=== PATIENT | male | born 1950 | race Caucasian/White ===

== ENCOUNTER 2021-03-24 19:22 | Emergency (ER) | payer MEDICARE ==
[~2021-03-24] VITALS: Ht 170.2 cm; Wt 91.8 kg
--- NOTE | 2021-03-24 19:48 | PHYS DOC ---
General Adult EDM: Chief Complaint: CHEST PAIN HPI: HPI: 62-year-old male presents with chest pain. He has been having intermittent chest pain for the last couple of days. It improves with baby aspirin. The only medication he takes is a baby aspirin daily. He describes the pain as a pressure sensation of moderate intensity. He has not seen a doctor in "25 years". On arrival his blood pressure was 200/110s. He tells me he has never taken blood pressure medicine. He denies diaphoresis. He has not had a stress test or cardiac cath. Denies fever or chills. He was vaccinated for COVID-19. Review of Systems: Review of Systems: Constitutional: Denies fever or chills Eyes: Denies change in visual acuity HENT: Denies nasal congestion or sore throat Respiratory: Denies cough or shortness of breath Cardiovascular: Denies chest pain or edema GI: Denies abdominal pain, nausea, vomiting, bloody stools or diarrhea : Denies dysuria Musculoskeletal: Denies back pain or joint pain Integument: Denies rash Neurologic: Denies headache, focal weakness or sensory changes Endocrine: Denies polyuria or polydipsia Lymphatic: Denies swollen glands Psychiatric: Denies depression or anxiety Physical Exam: PE: Constitutional: Well developed, well nourished, no acute distress, non-toxic appearance. [] HENT: Normocephalic, atraumatic, bilateral external ears normal, oropharynx moist, no oral exudates, nose normal. [] Eyes: PERRLA, EOMI, conjunctiva normal, no discharge. [] Neck: Normal range of motion, no tenderness, supple, no stridor. [] Cardiovascular:Heart rate regular rhythm, no murmur [] Lungs & Thorax: Bilateral breath sounds clear to auscultation [] Abdomen: Bowel sounds normal, soft, no tenderness, no masses, no pulsatile masses. [] Skin: Warm, dry, no erythema, no rash. [] Back: No tenderness, no CVA tenderness. [] Extremities: No tenderness, no cyanosis, no clubbing, ROM intact, no edema. [] Neurologic: Alert and oriented X 3, normal motor function, normal sensory f unction, no focal deficits noted. [] Psychologic: Affect normal, judgement normal, mood normal. [] EKG: EKG: Sinus rhythm, rate 96, normal axis, ST depression V2, lead I. No ST elevation. [] Radiology/Procedures: Radiology/Procedures: [] Impressions: XR CHEST 1V Clinical Indication: Reason: CP Comparison: None. Findings: Atherosclerotic and tortuous thoracic aorta. Cardiac size is normal. Prominence of the right paratracheal stripe. Lungs are clear. There is no pneumothorax. No pleural effusion is appreciated. No acute bone abnormality. IMPRESSION: Prominence of the right paratracheal stripe could be due to prominent mediastinal fat, vasculature, adenopathy, or mass. Consider further evaluation with CT. Electronically signed by: Harriett Grullon MD (03/24/2021 8:35 PM) [facility] DICTATED AND SIGNED BY: HARRIETT GRULLON MD DATE: 03/24/212026 CC: MAXINE MCNAMARA DO; PCP,NO ~MTH0 0 Heart Score: C/O Chest Pain: Yes HEART Score for Chest Pain: HEART Score for Chest Pain Response (Comments) Value History Moderately Suspicious 1 ECG Nonspecific Repolarizatio 1 Age > 65 2 Risk Factors 1 or 2 Risk Factors 1 Total 5 Risk Factors: Risk Factors: DM, Current or recent (<one month) smoker, HTN, HLP, family history of CAD, obesity. Risk Scores: Score 0 - 3: 2.5% MACE over next 6 weeks - Discharge Home Score 4 - 6: 20.3% MACE over next 6 weeks - Admit for Clinical Observation Score 7 - 10: 72.7% MACE over next 6 weeks - Early Invasive Strategies Course & Med Decision Making: Course & Med Decision Making Pertinent Labs and Imaging studies reviewed. (See chart for details) The patient has an elevated blood pressure for which I ordered lisinopril 20 mg and will likely give him clonidine. The patient's EKG shows some nondescript possible ST depression. He has a slightly elevated white count and hemoglobin of 9.3. I have no previous for comparison. His troponin is within normal limits but not completely negative. The patient's heart score is a 5. His chest x-ray shows possible abnormal finding which could include mass. See official read for more details. I have ordered a CT of the chest with contrast. I will admit the patient to the hospital. I spoke with Dr. Ren and he accepted patient for admission. Lisinopril has improved the patient's blood pressure to below 180 systolic. Dragon Disclaimer: Dragon Disclaimer: This electronic medical record was generated, in whole or in part, using a voice recognition dictation system. Departure Departure: Impression: Primary Impression: Chest pain Qualified Codes: R07.9 - Chest pain, unspecified Additional Impressions: Anemia Qualified Codes: D64.9 - Anemia, unspecified Hypertension Disposition: ADMITTED INPATIENT Admitting Physician: Govind Ren Condition: STABLE Referrals: PCP,PUNEET (PCP) MAXINE MCNAMARA DO Mar 24, 2021 19:48
[2021-03-24] MEDS ORDERED: LISINOPRIL 10 MG TABLET PO ONE (20:00)
[2021-03-24] MEDS ORDERED: ASPIRIN CHEWABLE 81 MG TABLET. PO ONE (20:00)
[2021-03-24 20:10] LABS: BASO # 0.1 x10^3/uL (0.0-0.2); BASO % 1 % (0-3); EOS # 0.2 x10^3/uL (0.0-0.7); EOS % 1 % (0-3); HEMATOCRIT 28.2 % (39.0-53.0); HEMOGLOBIN 9.3 g/dL (13.0-17.5); LYMPH # 4.9 x10^3/uL (1.0-4.8); LYMPH % 32 % (24-48); MEAN CORPUSCULAR HEMOGLOBIN 30 pg (25-35); MEAN CORPUSCULAR HGB CONC 33 g/dL (31-37); MEAN CORPUSCULAR VOLUME 91 fL (79-100); MONO # 0.9 x10^3/uL (0.0-1.1); MONO % 6 % (0-9); NEUT # 9.1 x10^3uL (1.8-7.7); NEUT % 60 % (31-73); PLATELET COUNT 265 x10^3/uL (140-400); RED BLOOD COUNT 3.11 x10^6/uL (4.30-5.70); RED CELL DISTRIBUTION WIDTH 15.3 % (11.5-14.5); WHITE BLOOD COUNT 15.3 x10^3/uL (4.0-11.0)
[2021-03-24 20:34] LABS: CALCIUM 7.9 mg/dL (8.5-10.1); CREATININE 1.5 mg/dL (0.7-1.3); GFR 46.5; POTASSIUM 3.4 mmol/L (3.5-5.1)
--- NOTE | 2021-03-24 20:37 | RAD ---
XR CHEST 1V Clinical Indication: Reason: CP Comparison: None. Findings: Atherosclerotic and tortuous thoracic aorta. Cardiac size is normal. Prominence of the right paratrac heal stripe. Lungs are clear. There is no pneumothorax. No pleural effusion is appreciated. No acute bone abnormality. IMPRESSION: Prominence of the right paratracheal stripe could be due to prominent mediastinal fat, vasculature, a denopathy, or mass. Consider further evaluation with CT. Electronically signed by: Kodi Mosley MD (03/24/2021 8:35 PM) [facility]
[2021-03-24 20:39] LABS: ALBUMIN 3.5 g/dL (3.4-5.0); ALBUMIN/GLOBULIN RATIO 1.1 (1.0-1.7); TOTAL BILIRUBIN 0.3 mg/dL (0.2-1.0); TOTAL PROTEIN 6.7 g/dL (6.4-8.2)
[2021-03-24 20:49] VITALS: BP 212/137
[2021-03-24] MEDS ORDERED: ACETAMINOPHEN 325 MG TABLET PO PRN (21:00)
[2021-03-24] MEDS ORDERED: ONDANSETRON PF 4 MG/2 ML VIAL. IVP PRN (21:00)
[2021-03-24] MEDS ORDERED: CONTRAST GIVEN. MC PRN (21:15)
--- NOTE | 2021-03-24 21:26 | EKG ---
[address] [address] Test Date: 2021-03-24 Test Time: 19:39:15 Pat Name: SHAKIRA LORD Department: Room: Gender: M Investigator: : [id number] Requested By: MAXINE MCNAMARA Order Number: [id number] Reading MD: Measurements Intervals [place] Rate: 96 P: 0 NM: 150 QRS: 2 QRSD: 102 T: 154 QT: 346 QTc: 438 Interpretive Statements SINUS RHYTHM CONSIDER LEFT VENTRICULAR HYPERTROPHY ST & T ABNORMALITY, CONSIDER ANTERIOR ISCHEMIA OR LEFT VENTRICULAR STRAIN LATERAL ISCHEMIA OR LEFT VENTRICULAR STRAIN INFEROLATERAL ISCHEMIA OR LEFT VENTRICULAR STRAIN ABNORMAL ECG RI6.02 No previous ECG available for comparison
[2021-03-24] MEDS ORDERED: IOHEXOL 300 MG/ML 75 ML VIAL. IV ONE (21:30)
== END 2021-03-24 21:18 | disposition left against medical advice (07) ==
LOC: ER 19:22
DX: I10 Essential (primary) hypertension (principal); D64.9 Anemia, unspecified; R07.89 Other chest pain
CPT/HCPCS: 36415; 71045; 80053; 84484; 85025; 93005; 99285